=== PATIENT | female | born 1965 | race African-American/Black ===

== ENCOUNTER 2021-07-21 07:52 | Day surgery (SDC) | payer OTHER ==
[2021-07-08 13:39] VITALS: BMI 31.0
[2021-07-21] MEDS: CELECOXIB 200 MG CAPSULE PO ONE ×2 (09:27→17:12)
[2021-07-21] MEDS ORDERED: ONDANSETRON 4 MG/2 ML VIAL IVPUSH PRN (09:54)
[2021-07-21] MEDS ORDERED: MAG HYDROX/AL HYDROX/SIMETH 30 ML UNIT-DOSE CUP PO PRN (09:54)
[2021-07-21] MEDS ORDERED: MAGNESIUM HYDROX 2400MG/30ML ORAL SUSPENSION 30 ML CUP PO PRN (09:54)
[2021-07-21] MEDS ORDERED: ALBUTEROL SO4 HFA INHALER IH PRN (09:57)
[2021-07-21] MEDS ORDERED: LACTATED RINGERS SOLUTION 1,000 ML IV SCH (10:00)
[2021-07-21] MEDS ORDERED: MIDAZOLAM HCL 2 MG/2 ML SINGLE DOSE VIAL ONE ×3 (10:19→12:08)
[2021-07-21] MEDS ORDERED: BUPIVACAINE LIPOSOME/PF (EXPAREL) 266 MG/20 ML VIAL ONE (10:19)
[2021-07-21] MEDS ORDERED: SODIUM CHLORIDE 0.9% P/F 10 ML VIAL IJ ONE (10:19)
[2021-07-21] MEDS ORDERED: BUPIVACAINE HCL/PF 0.5% (5MG/ML) 10 ML VIAL ONE (10:19)
[2021-07-21] MEDS ORDERED: CEFAZOLIN 2 GM in DEXTROSE 5%-WATER - 50 ML IVPB ONE (10:30)
[2021-07-21] MEDS ORDERED: TRANEXAMIC ACID 1000 MG/10 ML VIAL IVPUSH ONE (10:30)
[2021-07-21] MEDS ORDERED: BUPIVACAINE HCL 50 ML ONE (11:24)
[2021-07-21] MEDS ORDERED: ceFAZolin SODIUM 1 GM VIAL ONE (11:52)
[2021-07-21] MEDS ORDERED: ONDANSETRON 4 MG/2 ML VIAL ONE (11:52)
[2021-07-21] MEDS ORDERED: TRANEXAMIC ACID 1000 MG/10 ML VIAL ONE ×2 (11:52→13:45)
[2021-07-21] MEDS ORDERED: DEXAMETHASONE SOD PHOSPHATE 4 MG/1 ML VIAL ONE (11:52)
[2021-07-21] MEDS ORDERED: oxyCODONE HCL 5 MG TABLET PO PRN (12:26)
[2021-07-21] MEDS ORDERED: PROPOFOL 20 ML ONE (13:09)
[2021-07-21] MEDS ORDERED: ACETAMINOPHEN INJECTION 100 ML IVPB ONE (15:28)
[2021-07-21] MEDS: ACETAMINOPHEN 1000 MG/100 ML VIAL (NON FORMULARY) IVPB ONE ×2 (15:29→17:12)
[2021-07-21] MEDS: SENNOSIDES/DOCUSATE COMBO (SENNA PLUS) TABLET (UD) PO SCH ×2 (17:11→21:20)
[2021-07-21] MEDS: GABAPENTIN 300 MG CAPSULE PO SCH ×2 (17:11→21:20)
[2021-07-21] MEDS: MULTIVITAMINS (DAILY MVI) TABLET (FP) PO SCH (17:11)
[2021-07-21] MEDS: CITALOPRAM HYDROBROMIDE 20 MG TABLET PO SCH (17:11)
[2021-07-21] MEDS: oxyCODONE HCL 5 MG TABLET PO PRN (18:39)
[2021-07-21] MEDS ORDERED: CEFAZOLIN 2 GM in DEXTROSE 5%-WATER - 50 ML IVPB SCH (20:00)
[2021-07-21] MEDS: FAMOTIDINE 20 MG TABLET PO SCH (20:38)
[2021-07-21] MEDS: ASPIRIN COATED 81 MG TABLET.EC PO SCH (20:38)
[2021-07-21] MEDS: CELECOXIB 200 MG CAPSULE PO SCH (20:38)
[2021-07-21] MEDS: CEFAZOLIN 2 GM/D5W 2 GM/50 ML ML IVPB SCH (20:50)
[2021-07-21] MEDS: ACETAMINOPHEN 500 MG TABLET (FP) PO SCH (21:20)
[2021-07-22] MEDS: oxyCODONE HCL 5 MG TABLET PO PRN ×3 (00:33→12:20)
[2021-07-22] MEDS: ACETAMINOPHEN 500 MG TABLET (FP) PO SCH ×2 (03:21→09:21)
[2021-07-22] MEDS: CEFAZOLIN 2 GM/D5W 2 GM/50 ML ML IVPB SCH (03:33)
[2021-07-22 06:39] VITALS: PULSE 82
[2021-07-22] MEDS ORDERED: LEVOTHYROXINE NA 50 MCG TABLET (FP) PO SCH (07:00)
[2021-07-22 08:06] LABS: HEMATOCRIT 35.2 % (32.4-45.2); HEMOGLOBIN 11.8 GM/dl (10.7-15.3); MCHC 33.6 g/dl (32.0-36.0); MEAN PLT VOLUME 8.1 fl (7.5-11.1); PLATELET COUNT 219 10^3/uL (134-434); RBC 3.82 M/mm3 (3.60-5.2); WHITE BLOOD COUNT 8.4 K/mm3 (4.0-10.8)
[2021-07-22 08:08] LABS: CALCIUM 8.9 mg/dl (8.5-10); CREATININE 0.8 mg/dl (0.55-1.3)
[2021-07-22] MEDS: GABAPENTIN 300 MG CAPSULE PO SCH (09:19)
[2021-07-22] MEDS: MULTIVITAMINS (DAILY MVI) TABLET (FP) PO SCH (09:19)
[2021-07-22] MEDS: ASPIRIN COATED 81 MG TABLET.EC PO SCH (09:20)
[2021-07-22] MEDS: FAMOTIDINE 20 MG TABLET PO SCH (09:20)
[2021-07-22] MEDS: SENNOSIDES/DOCUSATE COMBO (SENNA PLUS) TABLET (UD) PO SCH (09:21)
[2021-07-22] MEDS: CELECOXIB 200 MG CAPSULE PO SCH (09:21)
[2021-07-22] MEDS: CITALOPRAM HYDROBROMIDE 20 MG TABLET PO SCH (10:14)
[2021-07-22 10:19] VITALS: BP 119/70; TEMP 97.8
== END 2021-07-22 14:34 | disposition home or self-care (01) ==
LOC: FASU 07:52 → FASUSAT 07:52 → FM/S 09:54 → FASUSAT 07-22 14:34
PROVIDERS: ATTEND Orthopaedic Surgery
PROC: 0SRD0J9 Replacement of Left Knee Joint with Synthetic Substitute, Cemented, Open Approach (ICD-10-PCS; principal; 2021-07-21 12:20)
DX: M17.12 Unilateral primary osteoarthritis, left knee (principal)
CPT/HCPCS: 27447; C1776; 36415; 73560-TC-LT-FY; 80048; 85027; 88304-TC; 88311-TC; 94010; 94760; 97010-GP; 97116-GP; 97161-GP; J0131